=== PATIENT | male | born 1945 | race Caucasian/White ===

== ENCOUNTER 2017-02-16 11:58 | Inpatient (IN) | payer OTHER ==
[~2017-02-16] VITALS: Ht 172.7 cm; Wt 78.6 kg
--- NOTE | ~2017-02-16 | EKG ---
[address] [place] [address] ELECTROCARDIOGRAM REPORT Name: FRANCISCO LATIF Room #: 409-P ADM IN M.R.#: [id number] Admission: 02/16/17 Attend Phys: Ivonne Banuelos Discharge: Date of : 45 Report #: [id number] THIS REPORT FOR: //name// [facility] ED Test Date: 2017-02-16 Test Time: 12:16:30 Pat Name: FRANCISCO LATIF Department: Room: [facility] Gender: M Psychiatric Technician Assistant: Nilda SALGUERO : 1945 Requested By: Jose G Ken Order Number: [id number] MD: Ceasar Lockett Measurements Intervals [place] Rate: 68 P: RI: QRS: -90 QRSD: 190 T: 51 QT: 504 QTc: 537 Interpretive Statements Atrial fibrillation Right bundle branch block Inferior infarct, old Anterior infarct, age indeterminate Compared to ECG 12/28/2016 09:09:14 No significant change was found Electronically Signed On 02-17-2017 7:46:43 CDT by Ceasar Lockett [email or web address] <ELECTRONICALLY SIGNED> By: Ceasar Lockett MD, [facility] 02/17/17 0746 1216 1216 Ceasar Lockett MD, [facility] /EPI
--- NOTE | ~2017-02-16 | HC ---
[facility] [place] [address] CONSULTATION Name: BHAVYAFRANCISCO Toribio Room #: 409-P [facility] IN M.R.#: [id number] Admission: 02/16/17 Attend Phys: Ivonne Banuelos Discharge: Date of : 45 Report #: [id number] THIS REPORT FOR: //name// CC: FAM unknown Ivonne Banuelos REASON FOR PRESENTATION: Feeling weak and cannot move. REASON FOR CONSULTATION: End-stage renal disease. HISTORY OF PRESENT ILLNESS: The patient is a 72-year-old with past medical history of end-stage renal disease. He is maintained on dialysis every Wednesday, Wednesday and Wednesday. He is well known to me from previous admissions. He has long-standing hypertension with multiple other comorbid conditions. He was in his nursing facility yesterday. He presented to the emergency room with low blood pressure and inability to move. He denies any fever or chills, but he admitted to profuse diarrhea. No chest pain and no palpitation. No loss of consciousness. No headache. He did have some dizziness. On presentation to the emergency room, he was found to be hypotensive. He was admitted for further evaluation and received some IV fluids and I was consulted to manage his end-stage renal disease. PAST MEDICAL HISTORY: 1. Hypertension. 2. End-stage renal disease, maintained on dialysis. 3. Central stenosis. 4. Post appendectomy. 5. Post tonsillectomy. 6. Right AV fistula. 7. Remote history of AFib. 8. Cardiomyopathy with reported ejection fractions of 45%. ALLERGIES: LORATADINE. MEDICATIONS: 1. Allopurinol. 2. Aspirin. 3. Sevelamer. 4. Darbepoetin. 5. Tramadol. 6. Levofloxacin. ADDITIONAL PAST MEDICAL HISTORY: 1. Non-Hodgkin lymphoma, in remission. 2. Skin cancers. 3. Suicidal ideation and depression in the past. [facility] [address] [place] [address] CONSULTATION Name: FRANCISCO LATIF Room #: 409-P [facility]#: [id number] Admission: 02/16/17 Attend Phys: Ivonne Banuelos Discharge: Date of : 45 Report #: [id number] SOCIAL HISTORY: No drug or alcohol abuse. He resides in a nursing facility. FAMILY HISTORY: Significant for hypertension. REVIEW OF SYSTEMS: GENERAL: No fever or chills. Significant weakness. CARDIOVASCULAR: No chest pain. PULMONARY: No cough or hemoptysis. GASTROINTESTINAL: Profuse diarrhea and nausea. MUSCULOSKELETAL: Diffuse arthralgias, myalgias. PHYSICAL EXAMINATION: VITAL SIGNS: The patient's blood pressure this morning was up; most recent blood pressure reading was reported to be 110/57. He is afebrile with a temperature of 35.9, pulse was 87. HEAD AND NECK: No jugular venous distention. CHEST: Some tortuous veins in the right side of the chest. Decreased air entry bilaterally. CARDIOVASCULAR: Regular, with no rub detected. ABDOMEN: Soft, nontender. LOWER EXTREMITIES: No edema. UPPER EXTREMITIES: Fistula magnum on the right side with tortuosity. LABORATORY DATA: Laboratory values reviewed. Hemoglobin 10.4 and platelets 125,000. Sodium 135, potassium 2.8. Albumin 2.2. Phosphorus was 2.8. C. diff positive. ASSESSMENT, IMPRESSION AND PLAN: 1. End-stage renal disease. 2. Clostridium difficile. 3. Hypotension. 4. Hypokalemia related to his Clostridium difficile. 5. Dialysis today on a high K bath. Discontinue IV fluids. Continue Flagyl for his C. diff. 6. Avoid aggressive ultrafiltration as he does not have significant peripheral edema. He does have some pleural effusion, but that is chronic. 7. Continue with his outpatient medications for his anemia and phosphorus binders. 8. Watch his blood pressure medications and back up some of his blood pressure medications if needed. 9. Dialysis regimen as usual every Wednesday, Wednesday and Wednesday. <ELECTRONICALLY SIGNED> By: Dl Hughes MD 02/18/17 0826 1046 1145 Dl Hughes MD /nt
[2017-02-16 11:58] VITALS: BP 78/39
[~2017-02-16 11:58] MED LIST: ACIDOPHILUS1 EACH PO; ALLOPURINOL 10100 M1; ALLOPURINOL 10100 M1 PO; ALLOPURINOL 30300 M2 PO; AMOXICILLIN 50500 M1 PO; APAP/CODEINE ELI5 M1 OR; ARANESP60 MCG/1 M IJ; ASPIR 8181 MG PO; ASPIRIN325 PO; BREO ELLIPTA 21 EACH IH; CALMOSEPTINE O3.5 GM TP; CARVEDILOL25 MG PO; CARVEDILOL3.125 MG PO; CEFDINIR300 MG PO; COLACE 100 MG100 MG PO; COMPAZINE10 MG PO; COREG3.125 MG PO; DIVALPROEX SOD125 MG PO; DUONEB 2.5-0.5 M3 ML INH; FLOMAX PO; HYDROCODONE-AP1 EAC6 PO; LIDOCAINE IJ; LOPERAMIDE 2 MG2 M1 PO; MAGOX 400400 MG PO; METOCLOPRAMIDE 55 M1 PO; MIDODRINE HCL 55 M1 PO; NEPHROCAPS SOFT1 CAP PO; NITROSTAT0.3 MG SL; NORCO 5-325 TA1 EACH PO; OMEPRAZOLE 20 M20 M1 PO; ONDANSETRON HCL4 M2 PO; PRILOSEC 20 MG20 MG PO; PROBIOTIC1 EAC1 PO; PROTONIX40 M1 PO; REGLAN 10 MG TA10 MG PO; REMERON 30 MG T30 M1 PO; REMERON15 MG PO; RENA-VITE TABL0.8 MG PO; RENAL SOFTGEL1 MG PO; RENAL VITAMIN; RENO CAPS SOFTGE1 MG PO; RENVELA800 MG PO; SEROQUEL 100 M100 MG PO; SEROQUEL 50 MG50 M1 PO; SINGULAIR 10 MG10 M1 PO; SYMBICORT160 MCG/4. INH; SYMBICORT80 MCG/4.1 INH; SYMBICORT80 MCG/4.5 INH; TRAMADOL 50 MG50 MG; TRAMADOL 50 MG50 MG PO; UNICOMPLEX M TA1 TA1 PO; VANCO 750750 MG/150 IV; VENOFER20 MG/ML IV; [UNRECOGNIZED DRUG - OTHER] IV PUSH
[2017-02-16 12:18] LABS: ABSOLUTE NEUTROPHILS 5.2 thou/uL (1.4-8.2); BASOPHILS 0.6 % (0.0-2.0); EOSINOPHILS 1.8 % (0.0-3.0); HEMATOCRIT 34.8 % (42.0-52.0); HEMOGLOBIN 11.5 gm/dL (14.0-18.0); LYMPHOCYTES 13.8 % (24.0-44.0); MONOCYTES 9.3 % (1.0-8.0); PLATELET COUNT 173 thou/uL (150-400); POLYS 74.5 % (36.0-66.0); RBC 3.59 mil/uL (4.50-6.00); RDW 16.4 % (10.5-14.5)
[2017-02-16 12:19] LABS: MANUAL DIFF NO
[2017-02-16 12:26] LABS: ANION GAP 11 mmol/L (7-16); BUN 23 mg/dL (7-18); CALCIUM 8.4 mg/dL (8.5-10.1); CHLORIDE 97 mmol/L (98-107); CO2 28 mmol/L (21-32); CREATININE 3.5 mg/dL (0.6-1.3); GLUCOSE 118 mg/dL (70-99); POTASSIUM 3.1 mmol/L (3.5-5.1); SODIUM 136 mmol/L (136-145)
[2017-02-16 12:33] LABS: ALBUMIN 2.5 g/dL (3.4-5.0); ALKALINE PHOSPHATASE 299 U/L (46-116); SGOT 41 U/L (15-37); SGPT 14 U/L (30-65); TOTAL BILIRUBIN 0.6 mg/dL (<0.1-1.0); TOTAL PROTEIN 6.1 g/dL (6.4-8.2); TROPONIN-I < 0.04 ng/mL (<0.04-0.07)
[2017-02-16] MEDS ORDERED: VITAMIN D3400 UNIT PO (12:33)
[2017-02-16] MEDS ORDERED: ZOFRAN4 MG PO (12:36)
[2017-02-16] MEDS ORDERED: NITROGLYCERIN0.4 MG SUBLING (12:36)
[2017-02-16] MEDS ORDERED: TRAMADOL 50 MG50 MG PO (12:45)
[2017-02-16] MEDS ORDERED: ASPERCREME 1141.7 GM TP (12:45)
[2017-02-16] MEDS ORDERED: SENNA8.6 MG PO (12:46)
[2017-02-16] MEDS ORDERED: LEVAQUIN 250 M250 MG PO (12:46)
[2017-02-16 12:47] LABS: URINE BILIRUBIN NEGATIVE (Negative); URINE BLOOD 1+ (Negative); URINE COLOR YELLOW; URINE GLUCOSE-RANDOM* NEGATIVE (Negative); URINE KETONES NEGATIVE (Negative); URINE LEUKOCYTES-REFLEX NEGATIVE (Negative); URINE PROTEIN (DIPSTICK) 1+ (Negative); URINE UROBILINOGEN 0.2 E.U./dl (0.2-1.0)
[2017-02-16 13:03] LABS: AMORPHOUS URATES Few /LPF (None Seen); CASTS None Seen /LPF (None Seen); SQUAMOUS None Seen /LPF (0-3); URINE RBC 0-2 Rare /HPF (0-2); URINE WBC-REFLEX 0-5 Rare /HPF (0-5)
[2017-02-16 15:30] VITALS: BP 88/39
[2017-02-16 15:51] VITALS: BP 93/39
[2017-02-16 20:55] VITALS: BP 98/45
[2017-02-17 00:15] VITALS: BP 89/46
[2017-02-17 05:21] VITALS: BP 108/47
[2017-02-17 06:40] LABS: HEMATOCRIT 31.6 % (42.0-52.0); HEMOGLOBIN 10.4 gm/dL (14.0-18.0); MCH 32.2 pg (26.0-34.0); MCV 97.8 fL (80.0-100.0); RBC 3.23 mil/uL (4.50-6.00); RDW 16.4 % (10.5-14.5); WBC 4.7 thou/uL (4.0-11.0)
[2017-02-17 06:51] LABS: ALBUMIN 2.2 g/dL (3.4-5.0); PHOSPHORUS 2.8 mg/dL (2.5-4.9)
[2017-02-17 07:01] LABS: POTASSIUM 2.8 mmol/L (3.5-5.1)
[2017-02-17 08:00] VITALS: BP 110/57
[2017-02-17 16:00] VITALS: BP 121/60
[2017-02-17 20:00] VITALS: BP 108/56
[2017-02-18 00:41] VITALS: BP 112/60
[2017-02-18 04:56] VITALS: BP 106/56
[2017-02-18 05:58] LABS: HEMOGLOBIN 10.5 gm/dL (14.0-18.0); MCH 31.9 pg (26.0-34.0); MCHC 32.8 g/dL (28.0-37.0); MCV 97.4 fL (80.0-100.0); RBC 3.29 mil/uL (4.50-6.00); RDW 16.3 % (10.5-14.5)
[2017-02-18 06:10] LABS: ALBUMIN 2.3 g/dL (3.4-5.0); CALCIUM 8.1 mg/dL (8.5-10.1); PHOSPHORUS 1.9 mg/dL (2.5-4.9); POTASSIUM 3.2 mmol/L (3.5-5.1)
[2017-02-18 06:30] LABS: CREATININE 2.4 mg/dL (0.6-1.3)
[2017-02-18 08:43] VITALS: BP 112/49
[2017-02-18 11:11] LABS: HEP B SURFACE Ab(ANTI-HBS Non Reactive (())
[2017-02-18 15:44] VITALS: BP 124/50
[2017-02-18 20:00] VITALS: BP 116/51
[2017-02-19 04:00] VITALS: BP 113/59
[2017-02-19 09:10] VITALS: BP 116/67
[2017-02-19 16:15] VITALS: BP 104/49
[2017-02-19 19:57] VITALS: BP 100/51
[2017-02-20 06:00] LABS: ALBUMIN 2.1 g/dL (3.4-5.0); CREATININE 2.7 mg/dL (0.6-1.3); PHOSPHORUS 1.9 mg/dL (2.5-4.9); POTASSIUM 4.2 mmol/L (3.5-5.1)
[2017-02-20 08:00] VITALS: BP 124/60
[2017-02-20 16:00] VITALS: BP 131/50
[2017-02-20 20:00] VITALS: BP 114/50
[2017-02-21 04:49] LABS: ABSOLUTE NEUTROPHILS 4.9 thou/uL (1.4-8.2); BASOPHILS 0.4 % (0.0-2.0); EOSINOPHILS 2.4 % (0.0-3.0); HEMATOCRIT 33.2 % (42.0-52.0); HEMOGLOBIN 10.9 gm/dL (14.0-18.0); LYMPHOCYTES 17.1 % (24.0-44.0); MCH 32.4 pg (26.0-34.0); MCHC 32.9 g/dL (28.0-37.0); MCV 98.5 fL (80.0-100.0); MONOCYTES 7.4 % (1.0-8.0); PLATELET COUNT 134 thou/uL (150-400); POLYS 72.7 % (36.0-66.0); RBC 3.37 mil/uL (4.50-6.00); WBC 6.7 thou/uL (4.0-11.0)
[2017-02-21 04:53] LABS: MANUAL DIFF NO
[2017-02-21 05:16] LABS: ALBUMIN 2.2 g/dL (3.4-5.0); CALCIUM 8.2 mg/dL (8.5-10.1); POTASSIUM 4.7 mmol/L (3.5-5.1); TOTAL BILIRUBIN 0.6 mg/dL (<0.1-1.0); TOTAL PROTEIN 5.1 g/dL (6.4-8.2)
[2017-02-21 05:20] LABS: CREATININE 3.7 mg/dL (0.6-1.3)
[2017-02-21 08:30] VITALS: BP 111/58
[2017-02-21 16:45] VITALS: BP 136/87
[2017-02-21 20:58] VITALS: BP 118/59
[2017-02-22 05:00] VITALS: BP 97/56
[2017-02-22 08:00] VITALS: BP 96/46
[2017-02-22] MEDS ORDERED: FLAGYL 250 MG250 MG PO (10:42)
== END 2017-02-22 18:43 | DRG 371 ==
LOC: ER 11:58 → EROBS 14:31 → 4N 14:31
PROVIDERS: Emergency Medicine; Hospitalist; Nurse Practitioner Family
PROC: 5A1D60Z (ICD-10-PCS; principal; 2017-02-17)
DX: A04.7 Enterocolitis due to Clostridium difficile (principal); E43 Unspecified severe protein-calorie malnutrition; N18.6 End stage renal disease; I42.9 Cardiomyopathy, unspecified; I95.9 Hypotension, unspecified; E87.6 Hypokalemia; E86.0 Dehydration; Z96.653 Presence of artificial knee joint, bilateral; I48.91 Unspecified atrial fibrillation; K59.00 Constipation, unspecified; F31.9 Bipolar disorder, unspecified; M10.9 Gout, unspecified; G89.29 Other chronic pain; D64.9 Anemia, unspecified; Z96.641 Presence of right artificial hip joint; Z68.26 Body mass index [BMI] 26.0-26.9, adult; E86.9 Volume depletion, unspecified; Z79.82 Long term (current) use of aspirin; Z99.2 Dependence on renal dialysis; Z90.49 Acquired absence of other specified parts of digestive tract; Z88.8 Allergy status to other drugs, medicaments and biological substances; Z82.49 Family history of ischemic heart disease and other diseases of the circulatory system; Z79.899 Other long term (current) drug therapy; Z85.828 Personal history of other malignant neoplasm of skin
CPT/HCPCS: 10091; 32100

== ENCOUNTER 2017-07-01 21:14 | Inpatient (IN) | payer OTHER ==
[~2017-07-01] VITALS: Ht 170.2 cm; Wt 95.7 kg
--- NOTE | ~2017-07-01 | 2DMMODE ---
[facility] [address] [place] [address] 2 D/M-MODE ECHOCARDIOGRAM Name: FRANCISCO LATIF Room #: 460-P [facility] IN ..#: [id number] Admission: 07/01/17 Attend Phys: Dejuan Ramsey MD Discharge: Date of : 45 Date of Service: 07/08/17 1236 Report #: [id number] THIS REPORT FOR: //name// APPROVED REPORT Study performed: 07/08/2017 11:28:02 EXAM: Comprehensive 2D, Doppler, and color-flow Echocardiogram Patient Location: Bedside Room #: 460 Status: routine BSA: 1.92 HR: 83 bpm BP: 108/64 mmHg Rhythm: Atrial Fibrillation Other Information Study Quality: Good Indications Cardiomyopathy, Afib. Hx: Afib, HTN, ESRD 2D Dimensions RVDd: 59.01 mm LVEF(%): 71.13 (>50%) IVSd: 9.44 (7-11mm) LVOT Diam: 21.97 (18-24mm) LVDd: 47.14 mm PWd: 10.13 (7-11mm) LVDs: 28.08 (25-40mm) Aortic Root: 35.60 mm Reddy's LVEF: 71.13 % Volumes Left Atrial Volume (Systole) Single Plane 4CH: 88.99 mL Single Plane 2CH: 121.79 mL LA ESV Index: 64.00 mL/m2 Aortic Valve AoV Peak Sylvester.: 1.70 m/s AO Peak Gr.: 12.16 mmHg LVOT Max P.92 mmHg LVOT Max V: 1.11 m/s JUSTO Vmax: 2.47 cm2 Mitral Valve MV Decel. Time: 204.66 ms MV E Max Syvlester.: 1.22 m/s [facility] [place] [address] 2 D/M-MODE ECHOCARDIOGRAM Name: FRANCISCO LATIF Room #: 460-[facility] IN .R.#: [id number] Admission: 07/01/17 Attend Phys: Dejuan Ramsey MD Discharge: Date of : 45 Date of Service: 07/08/17 1236 Report #: [id number] Pulmonary Valve PV Peak Sylvester.: 1.27 m/s PV Peak Gr.: 6.44 mmHg Tricuspid Valve TR Peak Sylvester.: 3.90 m/s RAP Estimate: 10.00 mmHg TR Peak Gr.: 60.00 mmHg PA Pressure: 70.00 mmHg Left Ventricle The left ventricle is normal size. There is normal left ventricular wall thickness. Left ventricular systolic function is normal. LVEF is 50-55%. This study is not technically sufficient to allow evaluation of the LV diastolic function due to atrial fibrillation. Right Ventricle Right ventricle is dilated. Right ventricle is hypokinetic. Moderator band is seen in the right ventricle. Atria Left atrium is severely dilated. Right atrium is severely dilated. Aortic Valve Aortic valve is calcified. No aortic regurgitation is present. There is no aortic valvular stenosis. Mitral Valve Mitral valve leaflets are mildly thickened. Moderate mitral annular calcification. Mild mitral regurgitation. Tricuspid Valve Tricuspid valve leaflets are thickened but open well. There is moderate tricuspid regurgitation. The right atrial pressure is estimated at 10 mmHg. There is severe pulmonary hypertension with an estimated PAP of 70mmHg Pulmonic Valve The pulmonary valve is normal in structure. Mild pulmonic regurgitation. Great Vessels The aortic root is normal in size. IVC is dilated and collapses <50% with inspiration. Pericardium [facility] [address] [place] [address] 2 D/M-MODE ECHOCARDIOGRAM Name: FRANCISCO LATIF Room #: 460-P [facility] IN .R.#: [id number] Admission: 07/01/17 Attend Phys: Dejuan Ramsey MD Discharge: Date of : 45 Date of Service: 07/08/17 1236 Report #: [id number] There is no pericardial effusion. Left and right pleural effusions noted. <Conclusion> The left ventricle is normal size. LVEF is 50-55%. Right ventricle is dilated. Right ventricle is hypokinetic. Moderator band is seen in the right ventricle. Left atrium is severely dilated. Right atrium is severely dilated. Aortic valve is calcified. No aortic regurgitation is present. There is no aortic valvular stenosis. Mitral valve leaflets are mildly thickened. Moderate mitral annular calcification. Mild mitral regurgitation. Tricuspid valve leaflets are thickened but open well. There is moderate tricuspid regurgitation. The right atrial pressure is estimated at 10 mmHg. There is severe pulmonary hypertension with an estimated PAP of 70mmHg The pulmonary valve is normal in structure. Mild pulmonic regurgitation. Left and right pleural effusions noted. <ELECTRONICALLY SIGNED> By: Zach Zafar MD 07/08/17 1236 1236 1236 Zach Zafar MD /INF
--- NOTE | ~2017-07-01 | CNG ---
[facility] [address] [place] [address] CYTO-NONGYN REPORT PROCEDURE Name: BHAVYAMARCELO Room #: 460-P ADM IN M.R.#: [id number] Admission: 07/01/17 Date of : 45 Discharge: Report #: [id number] Path Case #: [id number] CYTOPATHOLOGY REPORT COLLECTION DATE: 07/10/2017 RECEIVED DATE: 07/12/2017 SUBMITTING PHYS: Dr. Subhash Bell OTHER PHYS: Dr. Dejuan Ramsey CLINICAL HISTORY: R side pleural effusion, pneumonia. SPECIMEN(S) RECEIVED: A.Pleural fluid, Right * * * * * * * * * * * * FINAL DIAGNOSIS: A. Right Pleural fluid: - No malignant cells identified. Few mesothelial cells along with acute inflammatory cells present in a background of debris. PATHOLOGIST: Jennyfer Prieto M.D. REPORT ELECTRONICALLY SIGNED BY: Jennyfer Prieto M.D. DATE/TIME: 07/13/2017 15:19 * * * * * * * * * * * * GROSS PATHOLOGY: A. Pleural fluid, Right: The specimen is submitted unfixed, labeled "Marcelo Perez". Received by the Cytology Department is 30 mL of clear yellow fluid. One ThinPrep slide and a cell block were prepared. (clt 07.12.2017) INSTRUMENTATION TECH(S): MELANIE Cornejo([facility]) INITIAL CPT CODE(S): A; 05670, 84007 Professional services performed by [facility] at [facility] [address], [place] [address] Technical services performed by [facility] at [address] [place] [address]., [address], [place] [address]. [facility] [address] [place] [address], [address] [place] [address] PHONE: [phone] [facility] [address] [place] [address] CYTO-NONGYN REPORT PROCEDURE Name: BHAVYAMARCELO Room #: 460-P ADM IN M.R.#: [id number] Admission: 07/01/17 Date of : 45 Discharge: Report #: [id number] Path Case #: [id number] DIRECTOR: Jimbo Tapia M.D. * * * END OF REPORT * * *
--- NOTE | ~2017-07-01 | EKG ---
[address] [address] ELECTROCARDIOGRAM REPORT Name: FRANCISCO LATIF Room #: 460-P ADM IN M.R.#: [id number] Admission: 07/01/17 Attend Phys: Dejuan Ramsey MD Discharge: Date of : 45 Report #: [id number] THIS REPORT FOR: //name// [facility] Test Date: 2017-07-08 Test Time: 11:57:29 Pat Name: FRANCISCO LATIF Department: Room: 460 P Gender: M Learning Coach: douglas : 1945 Requested By: Ta Starr Order Number: [id number] MD: Ta Starr Measurements Intervals [place] Rate: 94 P: [place]: QRS: -82 QRSD: 170 T: 119 QT: 408 QTc: 511 Interpretive Statements Atrial fibrillation Right bundle branch block Electronically Signed On 07-11-2017 22:01:29 CDT by Ta Starr [email or web address] <ELECTRONICALLY SIGNED> By: Ta Starr MD 07/11/17 2201 1157 1157 MD KD Ritchie
--- NOTE | ~2017-07-01 | HC ---
[facility] [address] [place] [address] CONSULTATION Name: FRANCISCO LATIF Room #: 460-P [facility] IN M.R.#: [id number] Admission: 07/01/17 Attend Phys: Dejuan Ramsey MD Discharge: Date of : 45 Report #: [id number] THIS REPORT FOR: //name// CC: FAM unknown Dejuan Ramsey TYPE OF REPORT: Pulmonary consultation. REFERRAL PHYSICIAN: Subhash Bell M.D. REASON FOR REFERRAL: Acute respiratory failure. HISTORY OF PRESENT ILLNESS: The patient is a 72-year-old white male who was admitted on July 01 with sepsis, C. difficile colitis and pneumonia. Earlier today, the patient was undergoing a rectal tube change. He developed vasovagal. He was momentarily lethargic. An arterial blood gas was abnormal. A pulmonary consultation was requested. Currently, the patient is more awake. He looks tired and weak. Otherwise, denies any dyspnea. As mentioned above, he has been treated for C. difficile colitis along with pneumonia. He has been on broad-spectrum antibiotics. The patient is a resident of correction at [facility]. PAST MEDICAL HISTORY: As mentioned above including cardiomyopathy, presumed nonischemic; ejection fraction of 45%; end-stage renal disease, on hemodialysis; he has a right AV fistula; history of non-Hodgkin's lymphoma; atrial fibrillation; chronic anemia; chronic constipation; chronic pancytopenia; depression; bipolar disorder; gout; gastroparesis; past history of suicidal attempts and chronic pain. PAST SURGICAL HISTORY: Remarkable for tonsillectomy, appendectomy, bilateral knee replacement, skin cancer resection, right hip replacement. ALLERGIES: To LORATADINE, reactions not specified. CURRENT MEDICATIONS: List reviewed. FAMILY HISTORY: Noncontributory. SOCIAL HISTORY: He is a resident at [facility]. He denies any tobacco or alcohol use. REVIEW OF SYSTEMS: As mentioned above, is more alert, does not appear to be in distress. He appears weak with rzhd-ge-agsihztm muscle atrophy. [facility] [address] [place] [address] CONSULTATION Name: FRANCISOC LATIF Room #: 460-[facility] IN M.R.#: [id number] Admission: 07/01/17 Attend Phys: Dejuan Ramsey MD Discharge: Date of : 45 Report #: [id number] PHYSICAL EXAMINATION: VITAL SIGNS: Temperature is 96 degrees Fahrenheit, pulse is 87, respiratory rate is 20, blood pressure 125/55 mmHg and saturation is 92%. HEENT: Normocephalic and atraumatic. NECK: Supple, without lymphadenopathy or thyromegaly. CHEST: Breath sounds are decreased bilaterally, decreased in the bases. No obvious wheezes. Few scattered crackles in the bases. CARDIOVASCULAR: Heart sounds are distant. No obvious murmurs or gallop. Pulses are 2+/4+ bilaterally. ABDOMEN: Soft and nontender. No masses felt. GENITOURINARY: Deferred. RECTAL: Deferred. EXTREMITIES: No cyanosis or clubbing. Trace ankle edema noted. LABORATORY DATA: Portable chest x-ray revealed a small lung volumes; chronic right-sided pleural effusions, mild to moderate and chronic atelectasis in the right lung field. Recent echocardiogram showed a left ventricle being normal, ejection fraction now is 50%-55%, right ventricle was dilated and is hypokinetic, left atrium is dilated, right atrium is dilated, aortic valve was normal and mild mitral regurgitation is noted. Pulmonary artery pressure is estimated at 70 mmHg. Sodium 133, potassium 3.4, chloride 97, CO2 is 29, BUN is 16, creatinine is 2.6 and glucose is 93. WBC 8500, hemoglobin is 10.5 and platelets are normal. Albumin 1.8. Arterial blood gas revealed pH 7.19, pCO2 of 71 and pO2 of 74, previous arterial blood gas on his last admission shows presence chronic hypercapnia. IMPRESSION: 1. Vlmxx-ba-aagiiwo hypercapnic hypoxic respiratory failure in this 72-year-old white male. This is felt to be related to recent vasovagal event while having his rectal bag inserted. His mental status has improved. He is more alert. At this time, I do not think he needs noninvasive positive pressure ventilation. I would recommend a followup arterial blood gas. Keep saturation 90%. 2. Severe sepsis due to Clostridium difficile colitis, presumed aspiration pneumonia. 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 3. End-stage renal disease, on hemodialysis. 4. Atrial fibrillation. 5. Non-Hodgkin lymphoma. 6. Generalized debility and weakness. 7. Dysphagia. 8. Additional impression should also be chronic right-sided pleural effusion, which has been present in the past. I do not think any further workup is necessary at this time unless pleural effusion worsens, then a thoracentesis will be helpful. RECOMMENDATION: We will repeat an arterial blood gas. Keep saturation 90%. [facility] [address] [place] [address] CONSULTATION Name: FRANCISCO LATIF Room #: 460-P [facility] IN M.Dino#: [id number] Admission: 07/01/17 Attend Phys: Dejuan Ramsey MD Discharge: Date of : 45 Report #: [id number] The patient at this time also has refused BiPAP. If arterial blood gas shows continued presence of yaxta-la-ddirlml hypercarbia, we will allow for permissive hypercapnia as long as the patient is medically stable. Should he deteriorates, then he will need to be moved to ICU with possible intubation. At this time, however, he appears to be quite stable and has recovered from his recent vasovagal. Thank you for this consultation. We will follow along with you. By: 1709 1820 MP Johnston /jona
--- NOTE | ~2017-07-01 | HC ---
[facility] [address] [place] [address] CONSULTATION Name: FRANCISCO LATIF Room #: 460-P [facility] IN M.R.#: [id number] Admission: 07/01/17 Attend Phys: Dejuan Ramsey MD Discharge: Date of : 45 Report #: [id number] THIS REPORT FOR: //name// CC: FAM unknown Dejuan Ramsey REASON FOR PRESENTATION: Shortness of breath. HISTORY OF PRESENT ILLNESS: A 72-year-old who is well known to me, he is known to have ESRD, hypertension, AFib, central stenosis. He is also being diagnosed with C. diff on numerous times. He dialyzes every Wednesday, Wednesday and Wednesday at the [facility]. He presented complaining of shortness of breath. He also had reported some diarrhea and weakness. This was associated with some GI symptoms in the form of nausea and vomiting. Does look like that there were some issues with pulling fluids from him in the outpatient setting. The patient has lost significant amount of weight and I thinks that there had not been any adjustment of his dry body weight, culminating into fluid overload. When seen this morning, he has a very foul smelling bowel movement, highly suggestive of C. diff. I was asked to manage his end-stage renal disease. PAST MEDICAL HISTORY: 1. Tonsillectomy. 2. End-stage renal disease. 3. AFib. 4. C. diff. 5. Remote history of suicidal ideation and attempts. 6. End-stage renal disease, maintained on dialysis AV fistula. 7. Non-Hodgkin's lymphoma. 6. Cardiomyopathy with an ejection fraction of 40%. SOCIAL HISTORY: No drug or alcohol abuse. He resides in a nursing facility. REVIEW OF SYSTEMS: GENERAL: Significant for weakness. He did have some chills, but no fever. CARDIOVASCULAR: As per the history of present illness, but no palpitation. PULMONARY: Significant for shortness of breath. GASTROINTESTINAL: Significant for nausea, vomiting, diarrhea. GENITOURINARY: He does not make urine. MUSCULOSKELETAL: Occasional back pain. FAMILY HISTORY: Significant for hypertension. MEDICATIONS: On presentation, the reported medications from the nursing facility include the followin. Carvedilol. 2. Sevelamer. [address] [address] CONSULTATION Name: FRANCISCO LATIF Room #: 460-P [facility] IN M.R.#: [id number] Admission: 07/01/17 Attend Phys: Dejuan Ramsey MD Discharge: Date of : 45 Report #: [id number] 3. Midodrine. 4. ____ Darbepoetin. 5. Tramadol. PHYSICAL EXAMINATION: GENERAL: He is alert, oriented, seems to be somewhat tachypneic. VITAL SIGNS: Most recent blood pressure values are in the 110/50. HEAD AND NECK: Elevated jugular pressure is present. CHEST: Bilateral crackles. CARDIOVASCULAR: No rub detected. ABDOMEN: Soft, nontender. LOWER EXTREMITIES: No edema. LABORATORY VALUES: Reviewed. White blood cell count is 15.1. Platelet is 120. Sodium is 130, potassium is 3.1. Albumin is 1.8. ASSESSMENT, IMPRESSION AND PLAN: 1. End-stage renal disease. 2. Fluid overload. 3. Hyponatremia. 4. Hypokalemia. 5. Very likely recurrent C. diff based on the CT finding and the white blood cell count and the foul smelling stool he has. 6. The patient will be arranged for to have dialysis, looks like that there was not any adjustment of his estimated dry body weight with his weight loss, leading to fluid overload. We will aim for dialysis today, dialysis tomorrow. 7. Correct his hypokalemia with a high potassium bath. 8. His hyponatremia is due to fluid overload. 9. Initiate p.o. vancomycin for C. diff. 10. Further plans for C. diff will be deferred to the primary team. <ELECTRONICALLY SIGNED> By: Dl Hughes MD 07/03/17 0725 0824 1035 Dl Hughes MD /nt
--- NOTE | ~2017-07-01 | HC ---
[facility] [address] [place] [address] CONSULTATION Name: FRANCISCO LATIF Room #: 460-P ADM IN M.R.#: [id number] Admission: 07/01/17 Attend Phys: Dejuan Ramsey MD Discharge: Date of : 45 Report #: [id number] THIS REPORT FOR: //name// CC: FAM unknown Dejuan Ramsey REASON FOR CONSULTATION: I was asked to evaluate the patient concerning colitis. HISTORY OF PRESENT ILLNESS: The patient is a 72-year-old with a history of colitis over the last several months. He also has end-stage renal disease and has been at [facility]. Comes in with increasing abdominal discomfort along with some nausea and emesis. Presented to the Emergency Room where he was hypotensive. He was given IV fluids. Placed on IV antibiotic therapy and admitted to the floor. He has remained afebrile with maximum temperature record of 99 degrees. Blood pressure has been in the 90s-110 systolic. He has been alert, anorexic. Incontinent of liquid, odorous stool. On 2 liters of oxygen per nasal cannula. In addition, he was noted to have distended gallbladder previously and there was some question whether he was supposed to have a cholecystectomy in future. ALLERGIES: LORATADINE. MEDICATIONS: As noted on his JAN. He was on metronidazole prior to his admission. PAST MEDICAL HISTORY: Tonsillectomy, appendectomy, bilateral total knee arthroplasties, skin cancer, cardiomyopathy, end-stage renal disease, non-Hodgkin lymphoma in remission, atrial fibrillation, right total hip arthroplasty, anemia, depression, bipolar disorder, gout, gastroparesis, previous suicide attempt, chronic pain, MRSA previously. FAMILY HISTORY: Noncontributory. SOCIAL HISTORY: Nonsmoker, no significant alcohol intake. REVIEW OF SYSTEMS: As noted above with no additions. PHYSICAL EXAMINATION: VITAL SIGNS: Afebrile, blood pressure was stable. Heart rate 110. He was alert and cooperative. He was on 2 liters of oxygen per nasal cannula. GENITOURINARY: He was incontinent odorous, liquid, mucusy stool. SKIN: He had a small ulcer to his coccyx with eschar as well as a small lesion to the mid portion of his back. HEENT: Dentition in fair repair. NECK: Supple. [facility] [address] [place] [address] CONSULTATION Name: FRANCISCO LATIF Room #: 460-P [facility] IN M.R.#: [id number] Admission: 07/01/17 Attend Phys: Dejuan Ramsey MD Discharge: Date of : 45 Report #: [id number] LUNGS: Clear. HEART: Regular, without appreciable murmur. ABDOMEN: Diffusely tender, no hepatosplenomegaly or mass. EXTERNAL GENITALIA: Unremarkable. EXTREMITIES: Unremarkable. NEUROLOGIC: Nonfocal. LABORATORY STUDIES: Sodium 132, potassium 3.1, bicarbonate 27, creatinine 3.3. Liver function tests normal. Alkaline phosphatase 303, ALT 9, albumin of 1.8, lactate 0.7. Hemoglobin 10, WBC 15, MCV 105, platelet count 120,000, 9% bands. Urinalysis pending. Blood cultures pending. C. diff PCR pending. CT scan of the abdomen and pelvis showed mural thickening of the ascending and descending colon. Chest x-ray: Cardiomegaly with vascular congestion, lower lobe changes. IMPRESSION: A 72-year-old with Pseudomonas colitis, I suspect is which is driving this process. He has underlying sepsis, which is now controlled. Continued leukocytosis. PLAN: Would recommend addressing the C. difficile with enteral vancomycin and parenteral metronidazole. We will see how he responds over the next 48 hours. May be necessary to evaluate for fecal transplant. We will follow his white count. The patient initially received vancomycin, Zosyn and Levaquin. These will be discontinued and we will continue with aggressive treatment for his colitis. <ELECTRONICALLY SIGNED> By: Jose G Johnson MD 07/05/17 1143 1323 1405 Jose G Johnson MD /nt
[~2017-07-01 21:14] MED LIST changes: +ASPERCREME 1141.7 GM TP; +FLAGYL 250 MG250 MG PO; +LEVAQUIN 250 M250 MG PO; +NITROGLYCERIN0.4 MG SUBLING; +SENNA8.6 MG PO; +VITAMIN D3400 UNIT PO; +ZOFRAN4 MG PO
[2017-07-01 21:19] VITALS: BP 74/41
[2017-07-01 22:08] LABS: HEMATOCRIT 31.1 % (42.0-52.0); HEMOGLOBIN 10.5 gm/dL (14.0-18.0); MCH 35.6 pg (26.0-34.0); MCHC 33.7 g/dL (28.0-37.0); MCV 105.7 fL (80.0-100.0); PLATELET COUNT 126 thou/uL (150-400); RBC 2.94 mil/uL (4.50-6.00); RDW 16.8 % (10.5-14.5)
[2017-07-01 22:14] LABS: CALCIUM 7.7 mg/dL (8.5-10.1); CREATININE 3.3 mg/dL (0.7-1.3); POTASSIUM 3.4 mmol/L (3.5-5.1)
[2017-07-01 22:20] LABS: DIRECT BILIRUBIN 0.3 mg/dL (<0.1-0.3); TOTAL BILIRUBIN 0.7 mg/dL (<0.1-1.0); TOTAL PROTEIN 5.4 g/dL (6.4-8.2)
[2017-07-01 22:25] LABS: MANUAL DIFF YES
[2017-07-01 22:50] LABS: TOTAL CELL COUNT 100
[2017-07-01 22:51] LABS: ANISOCYTOSIS 1+
[2017-07-01 23:29] VITALS: BP 94/50
[2017-07-02] VITALS (8 sets, daily range): BP systolic 86–110; BP diastolic 44–55
[2017-07-02 06:02] LABS: HEMATOCRIT 29.7 % (42.0-52.0); HEMOGLOBIN 10.1 gm/dL (14.0-18.0); MCH 35.6 pg (26.0-34.0); MCHC 33.8 g/dL (28.0-37.0); MCV 105.2 fL (80.0-100.0); PLATELET COUNT 120 thou/uL (150-400); RBC 2.82 mil/uL (4.50-6.00); RDW 16.1 % (10.5-14.5); WBC 15.1 thou/uL (4.0-11.0)
[2017-07-02 06:03] LABS: MANUAL DIFF YES
[2017-07-02 06:24] LABS: ALBUMIN 1.8 g/dL (3.4-5.0); CALCIUM 7.5 mg/dL (8.5-10.1); CREATININE 3.3 mg/dL (0.7-1.3); PHOSPHORUS 2.9 mg/dL (2.5-4.9); POTASSIUM 3.1 mmol/L (3.5-5.1)
[2017-07-02 08:29] LABS: ABSOLUTE NEUTROPHILS 13.1 thou/uL (1.4-8.2); ANISOCYTOSIS 1+; MACROCYTES 2+; METAMYELOCYTES 1 %; PLATELET ESTIMATE NORMAL; TOTAL CELL COUNT 100
[2017-07-03 04:00] VITALS: BP 90/44
[2017-07-03 05:08] LABS: HEMATOCRIT 31.7 % (42.0-52.0); HEMOGLOBIN 10.5 gm/dL (14.0-18.0); MCH 35.7 pg (26.0-34.0); MCHC 33.1 g/dL (28.0-37.0); MCV 107.7 fL (80.0-100.0); RBC 2.94 mil/uL (4.50-6.00); RDW 16.6 % (10.5-14.5); WBC 20.3 thou/uL (4.0-11.0)
[2017-07-03 05:33] LABS: CALCIUM 7.8 mg/dL (8.5-10.1); POTASSIUM 3.2 mmol/L (3.5-5.1)
[2017-07-03 05:37] LABS: CREATININE 2.3 mg/dL (0.7-1.3)
[2017-07-03 08:24] VITALS: BP 96/44
[2017-07-03 12:55] VITALS: BP 107/57
[2017-07-03 17:06] VITALS: BP 110/67
[2017-07-03 19:47] VITALS: BP 100/43
[2017-07-03 23:49] VITALS: BP 95/43
[2017-07-04 02:11] LABS: HEP B SURFACE Ab(ANTI-HBS Non Reactive (())
[2017-07-04 05:24] LABS: ABSOLUTE NEUTROPHILS 14.9 thou/uL (1.4-8.2); BASOPHILS 0.2 % (0.0-2.0); EOSINOPHILS 0.4 % (0.0-3.0); HEMATOCRIT 31.7 % (42.0-52.0); HEMOGLOBIN 10.3 gm/dL (14.0-18.0); MCH 34.9 pg (26.0-34.0); MCHC 32.6 g/dL (28.0-37.0); MCV 107.2 fL (80.0-100.0); PLATELET COUNT 159 thou/uL (150-400); POLYS 89.4 % (36.0-66.0); RBC 2.96 mil/uL (4.50-6.00); RDW 16.8 % (10.5-14.5); WBC 16.7 thou/uL (4.0-11.0)
[2017-07-04 05:26] LABS: MANUAL DIFF NO
[2017-07-04 05:31] LABS: CALCIUM 7.7 mg/dL (8.5-10.1); CREATININE 1.7 mg/dL (0.7-1.3)
[2017-07-04 06:34] LABS: POTASSIUM 2.9 mmol/L (3.5-5.1)
[2017-07-04 08:00] VITALS: BP 107/48
[2017-07-04 12:00] VITALS: BP 104/55
[2017-07-04 16:00] VITALS: BP 101/49
[2017-07-04 19:05] VITALS: BP 115/53
[2017-07-05 03:59] VITALS: BP 109/51
[2017-07-05 06:17] LABS: HEMATOCRIT 31.7 % (42.0-52.0); HEMOGLOBIN 10.4 gm/dL (14.0-18.0); MCH 35.3 pg (26.0-34.0); MCHC 32.6 g/dL (28.0-37.0); MCV 108.2 fL (80.0-100.0); RBC 2.93 mil/uL (4.50-6.00); WBC 15.2 thou/uL (4.0-11.0)
[2017-07-05 06:30] LABS: CALCIUM 7.5 mg/dL (8.5-10.1); CREATININE 2.6 mg/dL (0.7-1.3)
[2017-07-05 06:31] LABS: POTASSIUM 2.8 mmol/L (3.5-5.1)
[2017-07-05 08:00] VITALS: BP 103/53
[2017-07-05 11:30] VITALS: BP 110/57
[2017-07-05 15:30] VITALS: BP 86/49
[2017-07-05 19:41] VITALS: BP 102/48
[2017-07-06 03:56] VITALS: BP 110/50
[2017-07-06 07:16] VITALS: BP 91/44
[2017-07-06 11:26] VITALS: BP 115/63
[2017-07-06 12:18] VITALS: BP 140/77
[2017-07-06 13:09] LABS: HEMATOCRIT 31.4 % (42.0-52.0); HEMOGLOBIN 10.3 gm/dL (14.0-18.0); MCH 35.4 pg (26.0-34.0); MCHC 32.8 g/dL (28.0-37.0); PLATELET COUNT 151 thou/uL (150-400); RBC 2.91 mil/uL (4.50-6.00); RDW 16.9 % (10.5-14.5); WBC 8.2 thou/uL (4.0-11.0)
[2017-07-06 13:10] LABS: MANUAL DIFF YES
[2017-07-06 13:52] LABS: ABSOLUTE NEUTROPHILS 6.8 thou/uL (1.4-8.2); ANISOCYTOSIS 2+; MACROCYTES 2+; PLATELET ESTIMATE NORMAL; TOTAL CELL COUNT 100
[2017-07-06 15:22] VITALS: BP 114/63
[2017-07-06 19:32] VITALS: BP 103/59
[2017-07-07 03:10] VITALS: BP 109/57
[2017-07-07 06:00] LABS: HEMATOCRIT 31.8 % (42.0-52.0); HEMOGLOBIN 10.5 gm/dL (14.0-18.0); MCH 35.9 pg (26.0-34.0); MCHC 33.1 g/dL (28.0-37.0); MCV 108.5 fL (80.0-100.0); RBC 2.93 mil/uL (4.50-6.00); RDW 17.1 % (10.5-14.5); WBC 8.5 thou/uL (4.0-11.0)
[2017-07-07 06:17] LABS: ALBUMIN 1.8 g/dL (3.4-5.0); CALCIUM 7.3 mg/dL (8.5-10.1); CREATININE 2.6 mg/dL (0.7-1.3); PHOSPHORUS 2.7 mg/dL (2.5-4.9); POTASSIUM 3.4 mmol/L (3.5-5.1)
[2017-07-07 08:50] VITALS: BP 101/50
[2017-07-07 11:54] VITALS: BP 105/52
[2017-07-07 17:00] VITALS: BP 122/56
[2017-07-07 19:12] VITALS: BP 85/36
[2017-07-08 04:56] VITALS: BP 102/48
[2017-07-08 07:33] VITALS: BP 108/64
[2017-07-08 13:00] VITALS: BP 125/55
[2017-07-08 15:23] VITALS: BP 122/52
[2017-07-08 15:42] LABS: ABG SAMPLE TYPE ARTERIAL; BE(vivo) -2.3 mmol/L (-2 to +3); LACTATE 1.16 mmol/L (0.5-2.0); O2(CT) 14.4 mL/dL (15.0-23.0); O2Hb 90.7 % (92.0-98.0); PO2 74.7 mmHg (80.0-100.0); sO2 91.1 % (92.0-98.0); tCO2 29.1 mmol/L (24.0-30.0)
[2017-07-08 15:43] LABS: PCO2 71.2 mmHg (35.0-45.0); STICK SITE L.RADIAL; pH 7.196 (7.360-7.450)
[2017-07-08 17:04] LABS: ABG SAMPLE TYPE ARTERIAL; BE(vivo) -1.8 mmol/L (-2 to +3); HCO3 26.6 mmol/L (22.0-26.0); LACTATE 0.88 mmol/L (0.5-2.0); O2(CT) 13.5 mL/dL (15.0-23.0); O2Hb 89.4 % (92.0-98.0); PCO2 64.6 mmHg (35.0-45.0); PO2 67.5 mmHg (80.0-100.0); STICK SITE L.RADIAL; pH 7.232 (7.360-7.450); sO2 89.4 % (92.0-98.0); tCO2 28.6 mmol/L (24.0-30.0)
[2017-07-08 19:25] VITALS: BP 145/71
[2017-07-09 02:30] VITALS: BP 107/49
[2017-07-09 04:28] VITALS: BP 108/50
[2017-07-09 07:31] VITALS: BP 112/56
[2017-07-09 09:47] LABS: APTT 36.4 Seconds (24.5-32.8); INR 1.2; PROTIME 12.6 Seconds (9.3-11.4)
[2017-07-09 11:10] VITALS: BP 108/53
[2017-07-09 15:09] VITALS: BP 134/52
[2017-07-09 17:22] LABS: TOTAL PROTEIN 5.1 g/dL (6.4-8.2)
[2017-07-09 19:18] VITALS: BP 89/47
[2017-07-10 05:09] VITALS: BP 107/51
[2017-07-10 07:22] VITALS: BP 89/41
[2017-07-10 11:29] VITALS: BP 96/54
[2017-07-10 11:42] LABS: BF NUCLEATED CELLS 69; BF RBC 194
[2017-07-10 11:43] LABS: CLARITY CLEAR; COLOR YELLOW; TOTAL VOLUME 60 mL
[2017-07-10 12:48] LABS: BF NEUTROPHILS 30; MANUAL DIFF YES
[2017-07-10 12:51] LABS: BF COMMENTS 10; BF MACROPHAGE 47
[2017-07-10 13:31] LABS: ABSOLUTE NEUTROPHILS 4.6 thou/uL (1.4-8.2); BASOPHILS 0.4 % (0.0-2.0); EOSINOPHILS 0.8 % (0.0-3.0); HEMATOCRIT 33.3 % (42.0-52.0); HEMOGLOBIN 10.8 gm/dL (14.0-18.0); LYMPHOCYTES 13.5 % (24.0-44.0); MANUAL DIFF NO; MCH 35.3 pg (26.0-34.0); MCHC 32.3 g/dL (28.0-37.0); MCV 109.3 fL (80.0-100.0); PLATELET COUNT 142 thou/uL (150-400); POLYS 76.3 % (36.0-66.0); RBC 3.05 mil/uL (4.50-6.00); WBC 6.1 thou/uL (4.0-11.0)
[2017-07-10 13:43] LABS: ALBUMIN 1.9 g/dL (3.4-5.0); CALCIUM 7.5 mg/dL (8.5-10.1); CREATININE 2.1 mg/dL (0.7-1.3); POTASSIUM 3.5 mmol/L (3.5-5.1); TOTAL BILIRUBIN 0.7 mg/dL (<0.1-1.0); TOTAL PROTEIN 4.9 g/dL (6.4-8.2)
[2017-07-10 14:01] LABS: ANISOCYTOSIS 1+; MACROCYTES 1+
[2017-07-10 15:29] VITALS: BP 104/52
[2017-07-10 19:44] VITALS: BP 97/48
[2017-07-11 01:05] LABS: BODY FLUID ALBUMIN 1.1 g/dL (()); BODY FLUID AMYLASE 20 U/L (()); BODY FLUID GLUCOSE 90 mg/dL (()); BODY FLUID LDH 51 IU/L (())
[2017-07-11 04:04] VITALS: BP 83/37
[2017-07-11 07:48] VITALS: BP 125/59
[2017-07-11 11:19] VITALS: BP 101/60
[2017-07-11 11:38] LABS: ABG SAMPLE TYPE ARTERIAL; BE(vivo) -5.1 mmol/L (-2 to +3); HCO3 24.1 mmol/L (22.0-26.0); LACTATE 1.48 mmol/L (0.5-2.0); O2Hb 90.8 % (92.0-98.0); PCO2 65.9 mmHg (35.0-45.0); PO2 74.3 mmHg (80.0-100.0); pH 7.181 (7.360-7.450); sO2 90.7 % (92.0-98.0); tCO2 26.1 mmol/L (24.0-30.0)
[2017-07-11 11:39] LABS: Pressure Support 12 cm H20; STICK SITE L.RADIAL
[2017-07-11 12:58] VITALS: BP 140/77
[2017-07-11 13:57] LABS: ABG SAMPLE TYPE ARTERIAL; BE(vivo) -4.5 mmol/L (-2 to +3); HCO3 22.6 mmol/L (22.0-26.0); LACTATE 0.66 mmol/L (0.5-2.0); O2(CT) 12.1 mL/dL (15.0-23.0); PCO2 50.7 mmHg (35.0-45.0); sO2 73.7 % (92.0-98.0); tCO2 24.2 mmol/L (24.0-30.0)
[2017-07-11 13:58] LABS: O2Hb 78.9 % (92.0-98.0); PO2 44.6 mmHg (80.0-100.0); pH 7.267 (7.360-7.450)
[2017-07-11 20:40] VITALS: BP 139/103
[2017-07-12 04:12] VITALS: BP 104/50
[2017-07-12 06:05] LABS: HEMATOCRIT 31.6 % (42.0-52.0); HEMOGLOBIN 10.4 gm/dL (14.0-18.0); MCH 35.1 pg (26.0-34.0); MCV 106.5 fL (80.0-100.0); RBC 2.97 mil/uL (4.50-6.00); RDW 16.3 % (10.5-14.5); WBC 6.1 thou/uL (4.0-11.0)
[2017-07-12 06:17] LABS: ALBUMIN 1.7 g/dL (3.4-5.0); CALCIUM 7.3 mg/dL (8.5-10.1); PHOSPHORUS 3.1 mg/dL (2.5-4.9)
[2017-07-12 07:19] LABS: ABG SAMPLE TYPE ARTERIAL; BE(vivo) -1.6 mmol/L (-2 to +3); HCO3 26.6 mmol/L (22.0-26.0); LACTATE 0.74 mmol/L (0.5-2.0); O2(CT) 15.2 mL/dL (15.0-23.0); O2Hb 95.8 % (92.0-98.0); PO2 125.8 mmHg (80.0-100.0); STICK SITE L.RADIAL; pH 7.243 (7.360-7.450); sO2 97.9 % (92.0-98.0); tCO2 28.5 mmol/L (24.0-30.0)
[2017-07-12 07:22] LABS: ABG COMMENT OFF BIPAP
[2017-07-12 07:41] VITALS: BP 101/47
[2017-07-12 12:30] VITALS: BP 105/50
[2017-07-12 15:15] VITALS: BP 115/72
[2017-07-12 20:55] VITALS: BP 86/45
[2017-07-13 06:01] VITALS: BP 107/54
[2017-07-13 10:14] VITALS: BP 130/54
[2017-07-13 14:41] VITALS: BP 118/46
[2017-07-13 16:38] VITALS: BP 120/82
[2017-07-13 19:20] VITALS: BP 104/59
[2017-07-14 03:20] VITALS: BP 94/45
[2017-07-14 05:39] LABS: ALBUMIN 1.5 g/dL (3.4-5.0); CALCIUM 7.1 mg/dL (8.5-10.1); CREATININE 2.9 mg/dL (0.7-1.3); PHOSPHORUS 2.8 mg/dL (2.5-4.9); POTASSIUM 3.7 mmol/L (3.5-5.1)
[2017-07-14 07:50] VITALS: BP 126/59
[2017-07-14 13:29] VITALS: BP 103/44
[2017-07-14] MEDS ORDERED: DIFICID200 MG PO (14:13)
[2017-07-14] MEDS ORDERED: DIGOXIN125 MCG PO (14:14)
[2017-07-14 15:56] VITALS: BP 92/49
[2017-07-14 16:22] VITALS: BP 105/50
== END 2017-07-14 18:00 | DRG 871 ==
LOC: ER 21:14 → EROBS 22:53 → 4W 22:53
PROVIDERS: Emergency Medicine; Hospitalist; Internal Medicine; Internal Medicine Infectious Disease; Internal Medicine Nephrology; Internal Medicine Pulmonary Disease; Nurse Practitioner Family; Specialist
PROC: 5A1D60Z (ICD-10-PCS; principal; 2017-07-02)
PROC: 0W9B3ZZ Drainage of Left Pleural Cavity, Percutaneous Approach (ICD-10-PCS; 2017-07-10)
DX: A41.9 Sepsis, unspecified organism (principal); J69.0 Pneumonitis due to inhalation of food and vomit; N18.6 End stage renal disease; J96.22 Acute and chronic respiratory failure with hypercapnia; J96.21 Acute and chronic respiratory failure with hypoxia; E43 Unspecified severe protein-calorie malnutrition; I13.2 Hypertensive heart and chronic kidney disease with heart failure and with stage 5 chronic kidney disease, or end stage renal disease; I42.9 Cardiomyopathy, unspecified; E87.1 Hypo-osmolality and hyponatremia; C85.90 Non-Hodgkin lymphoma, unspecified, unspecified site; A04.7 Enterocolitis due to Clostridium difficile; J90 Pleural effusion, not elsewhere classified; Z96.653 Presence of artificial knee joint, bilateral; Z96.641 Presence of right artificial hip joint; K59.00 Constipation, unspecified; F32.9 Major depressive disorder, single episode, unspecified; F31.9 Bipolar disorder, unspecified; M10.9 Gout, unspecified; E87.6 Hypokalemia; K52.89 Other specified noninfective gastroenteritis and colitis; Z68.33 Body mass index [BMI] 33.0-33.9, adult; I50.9 Heart failure, unspecified; G89.29 Other chronic pain; I95.9 Hypotension, unspecified; I48.2 Chronic atrial fibrillation; R65.20 Severe sepsis without septic shock; Z66 Do not resuscitate; Z90.49 Acquired absence of other specified parts of digestive tract; Z88.8 Allergy status to other drugs, medicaments and biological substances; Z99.2 Dependence on renal dialysis; Z86.14 Personal history of Methicillin resistant Staphylococcus aureus infection; Z79.899 Other long term (current) drug therapy; Z79.82 Long term (current) use of aspirin
CPT/HCPCS: 10045; 32100